=== PATIENT | male | born 1945 | race Caucasian/White ===

== ENCOUNTER 2017-01-01 10:58 | Day surgery (SDC) | payer MEDICARE, OTHER ==
[~2017-01-01] VITALS: Ht 180.3 cm; Wt 128.2 kg
--- NOTE | ~2017-01-01 | OP ---
PATIENT NAME: ALLAN SNOW MEDICAL RECORD: [id number] :43 LOCATION:D.OPS ADMISSION DATE: SURGEON: PRESLEY CHRISTINA DO DATE OF OPERATION: 01/01/2017 PROCEDURE: Colonoscopy with snare polypectomy and hot forceps polypectomy. SCOPE: Olympus video pediatric colonoscope. MEDICATIONS: Propofol 700 mg IV per anesthesia. WITHDRAWAL TIME: 27 minutes. ESTIMATED BLOOD LOSS: Minimal. PREPARATION: Poor to fair. FINDINGS: Informed consent was given. The patient was made comfortable with the above medication. After reaching an adequate level of sedation by slow IV push, the patient was placed on the left side. A digital rectal examination was performed and was normal. The endoscope was then advanced under direct visualization through the anus to the cecum. As stated above, the prep was poor to fair. This made visualization difficult. There was a small benign-appearing sessile polyp located in the ascending colon, which measured approximately 4 mm in size. It was removed with a hot snare. There were 2 descending colon polyps, which measured 3 mm to 5 mm in size. Both appeared benign. They were both removed with hot snare and completely retrieved. The final polyp was a sigmoid polyp, which measured approximately 2-3 mm in size. It was benign appearing. It was removed with a hot forcep and completely retrieved. Retroflexion was performed in the rectum and there were no visualized hemorrhoids. The endoscope was withdrawn from the patient. The patient tolerated the procedure well and there were no complications. IMPRESSION: 1. Four separate polyps located in different locations and removed with hot snare and hot forceps. 2. There were also multiple small diverticuli located in the descending and sigmoid colon. There was no evidence of bleeding or diverticulitis. PLAN AND RECOMMENDATIONS: 1. Discharge home when recovery parameters are met. 2. High fiber diet. 3. Continue current medications. 4. Follow up biopsy specimen results. 5. Recommend a repeat colonoscopy in 1 year due to the poor prep on this examination. TRANSINT:[id number] Voice Confirmation ID: [id number] DOCUMENT ID: [id number] OPERATIVE REPORT [id number] ALLAN SNOWPRESLEY DO CC: [id number] DICTATION DATE: 01/01/17 1400 LACTATION SPECIALIST: 01/01/17 2328 [facility] 01/01/17 [place] [address]
[2017-01-01 11:28] LABS: HEMATOCRIT 47.4 % (42.0-54.0); HEMOGLOBIN 16.6 g/dL (13.5-17.5); MCH 31.6 pg (26.0-34.0); MCV 90.3 fL (80.0-100.0); MEAN PLATELET VOLUME 9.9 fL (7.4-10.4); RBC 5.25 10x6/uL (4.20-6.10); RDW 13.6 % (11.5-14.5); WBC 7.9 10x3/uL (4.8-10.8)
[2017-01-01 11:39] LABS: CALCIUM 9.4 mg/dL (8.5-10.1); POTASSIUM - SERUM 4.5 mmol/L (3.5-5.1)
[2017-01-01] MEDS ORDERED: NORVASC10 MG PO (11:43)
[2017-01-01] MEDS ORDERED: COREG25 MG PO (11:44)
[2017-01-01] MEDS ORDERED: TIKOSYN500 MCG PO (11:52)
[2017-01-01] MEDS ORDERED: GLIMEPIRIDE2 MG PO (11:53)
[2017-01-01] MEDS ORDERED: ELIQUIS5 MG PO (11:55)
[2017-01-01] MEDS ORDERED: AVAPRO300 MG PO (11:56)
[2017-01-01] MEDS ORDERED: LIPITOR10 MG PO (11:56)
[2017-01-01] MEDS ORDERED: PROBIOTIC1 EAC1 PO (11:57)
[2017-01-01] MEDS ORDERED: MULTIPLE VITAMI1 TA1 PO (11:57)
[2017-01-01 11:58] VITALS: BP 150/64; Ht 180.3 cm; Wt 128.2 kg
[2017-01-01 12:03] LABS: ANION GAP 13.9 mmol/L (8-16); CARBON DIOXIDE 25.6 mmol/L (21.0-32.0); CREATININE - SERUM 1.2 mg/dL (0.6-1.3)
--- NOTE | 2017-01-01 14:46 | NUR ---
1415- PT BACK TO ROOM, SUPINE WITH HOB ELEVATED. AT BEDSIDE SPEAKING WITH PT AND . 1430- FULL LIQUIDS TOLERATED. CONTINUES PASSING GAS. VSS. WILL CONITNUE TO MONITOR.
--- NOTE | 2017-01-01 15:31 | NUR ---
1500- IV D/C'D, PT TOLERATED. CATHETER INTACT. 1515- DISCHARGE INSTRUCTION COMPLETED, PT VERBALIZES UNDERSTANDING. PAPERWORK SIGNED. 1520- PT DISCHARGED VIA WHEELCHAIR WITH
== END 2017-01-01 15:20 | disposition home or self-care (01) ==
LOC: D.OPS 10:58
PROVIDERS: Anesthesiology
DX: Z12.11 Encounter for screening for malignant neoplasm of colon (principal); K63.5 Polyp of colon; K57.30 Diverticulosis of large intestine without perforation or abscess without bleeding; Z01.812 Encounter for preprocedural laboratory examination

== ENCOUNTER 2018-02-22 07:08 | Day surgery (SDC) | payer MEDICARE, OTHER ==
[~2018-02-22] VITALS: Ht 180.3 cm; Wt 123.2 kg
--- NOTE | ~2018-02-22 | OP ---
PATIENT NAME: ALLAN SNOW MEDICAL RECORD: [id number] :43 LOCATION:[facility] ADMISSION DATE: SURGEON: PRESLEY CHRISTINA DO DATE OF OPERATION: 02/22/2018 PROCEDURES: Colonoscopy with polypectomy and biopsies. INDICATIONS FOR PROCEDURE: Personal history of colon polyps with his last colonoscopy being performed on 01/01/2017. SCOPE: Olympus video pediatric colonoscope. MEDICATIONS: Propofol 450 mg IV per anesthesia. WITHDRAWAL TIME: 34 minutes. ESTIMATED BLOOD LOSS: Minimal. COMPLICATIONS: None. FINDINGS: Informed consent was given. The patient was made comfortable with the above medication. After reaching an adequate level of sedation by slow IV push, the patient was placed on his left side. A digital rectal examination was performed and was normal. The endoscope was then advanced under direct visualization through the rectum to the cecum, confirmed by the presence of the appendiceal orifice and ileocecal valve. The endoscope was slowly withdrawn and mucosa was carefully examined. The prep quality was fair. There were 5 polyps seen on today's examination. Two were located in the ascending colon. They were benign appearing and sessile and ranged in size from 4 mm to 6 mm in diameter. They were both removed using hot snare in 1 piece and completely retrieved. In the transverse colon, there were two benign-appearing sessile polyps, which ranged in size from 3 mm to 5 mm in diameter. One was removed using a hot snare in 1 piece and completely retrieved and the other was removed with hot forceps and was completely removed and cauterized. Final polyp was located in the sigmoid colon. It was a benign-appearing sessile polyp, which measured approximately 4 mm to 5 mm in diameter. It was removed in 1 piece using hot snare and completely retrieved. There were also multiple diverticula located in the descending and sigmoid colon with a few scattered diverticula on the right side of the colon. Severity was moderate. In the transverse colon and descending colon, there were a few areas of erythematous changes with some small petechiae. This could very well just be prep related. Two cold forceps biopsies were taken from the site in the transverse colon to rule out colitis. Retroflexion was performed in the rectum with a normal-appearing rectal wall. The endoscope was then withdrawn from the patient. The patient tolerated the procedure well and there were no complications. IMPRESSION: 1. Five polyps as described above, removed using a combination of hot snare and hot forceps. 2. Erythema and petechiae located in the transverse and descending colon. Biopsies taken to rule out colitis. 3. Moderate diverticulosis involving the entire colon with the main focus in the descending and sigmoid colon. OPERATIVE REPORT [id number] ALLAN SNOW PLAN AND RECOMMENDATIONS: 1. Discharge home when recovery parameters are met. 2. Follow up biopsy specimen results. 3. High fiber diet. 4. Continue current medications. 5. Recall colonoscopy in 2-3 years for continued surveillance based on a strong history of polyps. TRANSINT:[id number] Voice Confirmation ID: [id number] DOCUMENT ID: [id number] PRESLEY CHRISTINA DO at 1444 CC: [id number] DICTATION DATE: 02/22/18926 ASSEMBLY LINE LEADER: 02/22/18 1018 [facility] 02/22/18 [id number] [place] [address]
[~2018-02-22 07:08] MED LIST: AVAPRO300 MG PO; COREG25 MG PO; ELIQUIS5 MG PO; GLIMEPIRIDE2 MG PO; LIPITOR10 MG PO; MULTIPLE VITAMI1 TA1 PO; NORVASC10 MG PO; PROBIOTIC1 EAC1 PO; TIKOSYN500 MCG PO
[2018-02-22 07:24] LABS: HEMOGLOBIN 16.8 g/dL (13.5-17.5); MCH 31.1 pg (26.0-34.0); MCHC 34.3 g/dL (31.0-37.0); MCV 90.6 fL (80.0-100.0); MEAN PLATELET VOLUME 9.2 fL (7.4-10.4); RBC 5.41 10x6/uL (4.20-6.10); RDW 14.3 % (11.5-14.5); WBC 16.3 10x3/uL (4.8-10.8)
[2018-02-22 07:31] LABS: ANION GAP 13.8 mmol/L (8-16); CALCIUM 8.8 mg/dL (8.5-10.1); CARBON DIOXIDE 26.2 mmol/L (21.0-32.0); CREATININE - SERUM 1.5 mg/dL (0.6-1.3)
[2018-02-22 07:40] LABS: APTT 32.1 SECONDS (22.8-39.4); INR 1.19 (0.85-1.17); PROTIME 14.7 SECONDS (11.6-15.0)
[2018-02-22] MEDS ORDERED: COUMADIN5 MG PO (07:47)
[2018-02-22 07:56] VITALS: Ht 180.3 cm; Wt 123.2 kg
== END 2018-02-22 10:25 | disposition home or self-care (01) ==
LOC: D.OPS 07:08
PROVIDERS: Anesthesiology
DX: D12.2 Benign neoplasm of ascending colon (principal); D12.5 Benign neoplasm of sigmoid colon; D12.3 Benign neoplasm of transverse colon; I10 Essential (primary) hypertension; E11.9 Type 2 diabetes mellitus without complications; E66.01 Morbid (severe) obesity due to excess calories; Z68.37 Body mass index [BMI] 37.0-37.9, adult; Z01.812 Encounter for preprocedural laboratory examination